=== PATIENT | male | born 1960 | race Caucasian/White ===

== ENCOUNTER 2016-09-24 08:45 | Emergency (ER) | payer OTHER ==
[~2016-09-24] VITALS: Ht 170.2 cm; Wt 80.0 kg
[2016-09-24 09:04] VITALS: Ht 170.2 cm; Wt 80.0 kg
--- NOTE | 2016-09-24 09:29 | ERD ---
ER Documentation Chief Complaint Date/Time DATE: 09/24/16 TIME: 09:29 Chief Complaint BIB RA FOR EVAL OF ETOH. NO APPARENT INJURIES. HPI 56-year-old male undomiciled with no significant previous medical history presents to the ED via ambulance for evaluation of alcohol intoxication. He was at a local car wash and refused to leave the paramedics were called. Patient states he has been drinking, is hungry and just wants a sandwich. He does not want any kind of medical evaluation. Denies depression, hallucinations , suicidal or homicidal ideations. Asymptomatic. Denies chest pain or palpitations. No abdominal pain, nausea vomiting. No shortness of breath or cough. No fevers or chills. ROS All systems reviewed and are negative except as per history of present illness. PMhx/Soc Reviewed in chart. As per HPI. History of Surgery: No Anesthesia Reaction: No Hx Neurological Disorder: No Hx Respiratory Disorders: No Hx Cardiac Disorders: No Hx Psychiatric Problems: No Hx Miscellaneous Medical Probl: No Hx Alcohol Use: Yes Hx Substance Use: No Hx Tobacco Use: Yes FmHx Unknown, not relevant to presenting complaint. Physical Exam Vitals Vital Signs Date Time Temp Pulse Resp B/P Pulse Ox O2 Delivery O2 Flow Rate FiO2 09/24/16 15:54 97.6 70 18 135/65 100 Room Air 09/24/16 11:02 97.9 70 19 134/50 100 Room Air 09/24/16 09:04 97.0 100 19 113/60 100 Physical Exam Const: Alert, no acute distress Head: Atraumatic Eyes: Normal Conjunctiva ENT: Normal External Ears, Nose and Mouth. Neck: Full range of motion. Nontender Resp: Clear to auscultation bilaterally Cardio: Regular rate and rhythm, no murmurs Abd: Soft, non tender, non distended. Normal bowel sounds Skin: No petechiae or rashes Back: No midline or flank tenderness Ext: No cyanosis, or edema Neur: Awake and alert. No focal deficit observed. Psych: Intoxicated. Denies hallucinations or delusions. No suicidal homicidal ideations. Procedures/MDM DOCUMENTS REVIEWED: ED nurse, EMS, no prior records REEXAMINATION/REEVALUATION: Time: 11:00. Consumed several sandwiches. Alert and ambulatory with a steady gait. warehouse worker at the bedside but he refused evaluation. Time: 13:00. Sleeping but easily arousable. Ambulated to the bathroom. Time: 14:10. Patient now agrees to hospital social worker consultation for disposition. MEDICAL DECISION MAKIN-year-old undomiciled male with no significant previous medical history presents to the ED via ambulance for evaluation of alcohol intoxication. Admits to binge alcohol use. Patient denies any medical history, has no physical complaints and does not want lab work. He was observed in the ED for over 5 hours. He is alert, oriented and asymptomatic. No signs of alcohol withdrawal. He is undomiciled and initially refused hospital social worker but subsequently acquiesced and evaluation is pending. Counseled patient regarding diagnostic workup, diagnosis and need for followup. Understands to return to ED if symptoms recur, worsen or any other concerns. Departure Diagnosis: Primary Impression: Alcoholic intoxication Complication of substance-induced condition: uncomplicated Qualified Code: F10.120 - Alcoholic intoxication, uncomplicated Additional Impression: Homelessness Condition: Stable CHRIS CORTES MD September 24, 2016 09:29
[2016-09-24 15:54] VITALS: BP 135/65; PULSE 70; RESP 18; TEMP 97.6
== END 2016-09-24 15:55 | disposition home or self-care (01) ==
LOC: E/R 08:45
DX: F10.120 Alcohol abuse with intoxication, uncomplicated (principal); Z59.0 Homelessness; Z87.891 Personal history of nicotine dependence
CPT/HCPCS: 99283

== ENCOUNTER 2016-10-03 19:17 | Emergency (ER) | payer OTHER ==
[~2016-10-03] VITALS: Ht 177.8 cm; Wt 90.9 kg
[2016-10-03 20:15] VITALS: Ht 177.8 cm; Wt 90.9 kg
--- NOTE | 2016-10-03 20:50 | ERA ---
ER Documentation Chief Complaint Date/Time DATE: 10/03/16 TIME: 20:47 Chief Complaint HPI Patient is a 56-year-old man who presents with 1-2 days of gradual onset constant suicidal ideation with plan to overdose on pills and alcohol. The patient also reports having intermittent, sharp and dull, left precordial chest pain lasting less than 1 minute at time for the last 12 hours. The patient reports drinking alcohol today, taking his friend's Klonopin, "but not an overdose," and taking a "small" of methamphetamine. Patient reports that he has been diagnosed with bipolar disorder and schizoaffective disorder, was recently hospitalized for suicidality, and is intermittently compliant with Lamictal. ROS All systems reviewed and are negative except as per history of present illness. Medications Home Meds Reported Medications Levetiracetam* (Levetiracetam*) 500 Mg Tablet, 500 MG PO BID, TAB 10/03/16 Diazepam* (Diazepam*) 10 Mg Tablet, 30 MG PO BID Y for PRN, TAB 10/03/16 Lisinopril* (Lisinopril*) 20 Mg Tablet, 20 MG PO DAILY, #30 TAB 10/03/16 Allergies Allergies: Coded Allergies: ciprofloxacin (Unverified Allergy, Unknown, 10/03/16) PMhx/Soc Past medical history: Bipolar disorder, schizoaffective disorder Past surgical history: Denies Social history: Drinks alcohol, occasional meth, denies tobacco History of Surgery: No Anesthesia Reaction: No Hx Neurological Disorder: No Hx Respiratory Disorders: No Hx Cardiac Disorders: No Hx Psychiatric Problems: No Hx Miscellaneous Medical Probl: No Hx Alcohol Use: Yes Hx Substance Use: No Hx Tobacco Use: Yes FmHx Family History: No coronary disease, No diabetes Physical Exam Vitals Vital Signs Date Time Temp Pulse Resp B/P Pulse Ox O2 Delivery O2 Flow Rate FiO2 10/03/16 23:53 98.9 67 16 112/65 98 Room Air 10/03/16 20:15 98.2 84 20 108/62 97 Physical Exam Const: Alert, no acute distress Head: Atraumatic Eyes: Normal Conjunctiva, no pallor, no icterus, pupils midrange and reactive ENT: Normal External Ears, Nose and Mouth. Moist mucous membranes Neck: Full range of motion..~ No meningismus. No JVD Resp: Clear to auscultation bilaterally Cardio: Regular rate and rhythm, no murmurs Abd: Soft, non tender, non distended. Normal bowel sounds Skin: No petechiae or rashes Back: No midline or flank tenderness Ext: No cyanosis, or edema Neur: Awake and alert, cranial nerves II through XII intact bilaterally, moves and feels 4 extremities appropriate Psych: Labile affect, rapid speech, grandiosity Result Diagram: 10/03/16192910/03/161929 Results 24 hrs Laboratory Tests Test 10/03/16 19:22 10/03/16 19:30 Urine Color LT. YELLOW Urine Clarity CLEAR Urine pH 5.5 Urine Specific [place] <=1.005 Urine Ketones NEGATIVE Urine Nitrite NEGATIVE Urine Bilirubin NEGATIVE Urine Urobilinogen 0.2 E.U./dL Urine Leukocyte Esterase NEGATIVE Urine Hemoglobin NEGATIVE Urine Glucose NEGATIVE% Urine Total Protein NEGATIVE Urine Opiates Screen NEGATIVE Urine Barbiturates NEGATIVE Urine Amphetamines Screen NEGATIVE Urine Benzodiazepines Screen POSITIVE Urine Cocaine Screen NEGATIVE Urine Cannabinoids NEGATIVE White Blood Count 8.110^3/ul Red Blood Count 4.8910^6/ul Hemoglobin 15.5g/dl Hematocrit 47.5% Mean Corpuscular Volume 97.1fl Mean Corpuscular Hemoglobin 31.7pg Mean Corpuscular Hemoglobin Concent 32.6g/dl Red Cell Distribution Width 13.7% Platelet Count 41790^3/UL Mean Platelet Volume 10.2fl Neutrophils % 63.9% Lymphocytes % 26.2% Monocytes % 7.6% Eosinophils % 0.6% Basophils % 0.5% Nucleated Red Blood Cells % 0.0/100WBC Neutrophils # 5.210^3/ul Lymphocytes # 2.110^3/ul Monocytes # 0.610^3/ul Eosinophils # 0.110^3/ul Basophils # 0.010^3/ul Nucleated Red Blood Cells # 0.010^3/ul Prothrombin Time 12.7Sec Prothrombin Time Ratio 1.0 INR International Normalized Ratio 0.95 Sodium Level 145mmol/L Potassium Level 3.6mmol/L Chloride Level 104mmol/L Carbon Dioxide Level 26mmol/L Anion Gap 19 Blood Urea Nitrogen 20mg/dl Creatinine 0.96mg/dl Glucose Level 94mg/dl Calcium Level 10.1mg/dl Total Bilirubin 0.0mg/dl Direct Bilirubin 0.00mg/dl Indirect Bilirubin 0.0mg/dl Aspartate Amino Transf (AST/SGOT) 44IU/L Alanine Aminotransferase (ALT/SGPT) 46IU/L Alkaline Phosphatase 80IU/L Troponin I < 0.012ng/ml Total Protein 8.5g/dl Albumin 4.7g/dl Globulin 3.80g/dl Albumin/Globulin Ratio 1.23 Salicylates Level < 1.0mg/dl Acetaminophen Level < 10.0ug/ml Ethyl Alcohol Level 189.0mg/dl Procedures/MDM EKG read by me: Time 2057, rate 83 Rhythm: Normal sinus [place]: Normal Intervals: Normal ST-T waves: no ischemic changes Ectopy: No Q-waves: No Impression: No evidence of ischemia or arrhythmia MDM: Patient is a 56-year-old male who presents to the ER with evidence of decompensated bipolar disorder associated with suicidal ideation with plan. The patient is appropriately communicative and is able to express that he did drink alcohol use a small amount of drugs, but that he did not take an overdose of any medication despite plan to overdose on medication. The patient did complain of a very atypical chest pain that is a very short duration and reports that he has had this pain numerous times in the past. His EKG, chest x- ray, and troponin are all negative. I do not believe that he requires further workup for chest pain at this time. There is some reproducible pain on exam and I suspect that this is chest wall pain. The patient was evaluated by tele- psychiatry, who recommends that the patient be put on 5150 hold. The patient was signed out at shift change awaiting PET team evaluation for hold. Departure Diagnosis: Primary Impression: Suicidal ideation Additional Impressions: Bipolar disorder Qualified Code: F31.9 - Bipolar affective disorder, remission status unspecified Atypical chest pain Alcohol intoxication Qualified Code: F10.120 - Alcohol intoxication, uncomplicated Condition: Stable JACQUELIN LEOS MD October 03, 2016 20:49
--- NOTE | 2016-10-03 21:19 | RADRPT ---
PROCEDURE: XR Chest. CLINICAL INDICATION: Shortness of breath. TECHNIQUE: A single portable view of the chest was obtained. COMPARISON: None FINDINGS: The cardiomediastinal silhouette is within normal limits. The lungs and pleural spaces are clear. The soft tissues and osseous structures are unremarkable. IMPRESSION: No acute cardiopulmonary disease. RPTAT: HPNM Physician [place] Date Time Electronically viewed and signed by Estrada Law Physician on 10/03/2016 21:19 /
[2016-10-03 21:23] LABS: ADD SCAN DIFF NO
[2016-10-03 21:24] LABS: BASOPHILS % 0.5 % (0.0-2.0); EOSINOPHILS # 0.1 10^3/ul (0.0-0.5); EOSINOPHILS % 0.6 % (0.0-7.0); HEMATOCRIT 47.5 % (42.0-52.0); HEMOGLOBIN 15.5 g/dl (14.0-18.0); LYMPHOCYTES # 2.1 10^3/ul (0.8-2.9); LYMPHOCYTES % 26.2 % (15.0-51.0); MEAN CORPUSCULAR HEMOGLOBIN 31.7 pg (29.0-33.0); MEAN CORPUSCULAR HGB CONC 32.6 g/dl (32.0-37.0); MEAN CORPUSCULAR VOLUME 97.1 fl (82.0-101.0); MEAN PLATELET VOLUME 10.2 fl (7.4-10.4); MONOCYTE # 0.6 10^3/ul (0.3-0.9); MONOCYTES % 7.6 % (0.0-11.0); NEUTROPHIL # 5.2 10^3/ul (1.6-7.5); NEUTROPHILS % 63.9 % (39.0-77.0); PLATELET COUNT 234 10^3/UL (140-415); RED BLOOD COUNT 4.89 10^6/ul (4.70-6.10); RED CELL DISTRIBUTION WIDTH 13.7 % (11.5-14.5); WHITE BLOOD COUNT 8.1 10^3/ul (4.8-10.8)
[2016-10-03 21:34] LABS: INR 0.95; PROTIME 12.7 Sec (12.2-14.2)
[2016-10-03 21:36] LABS: ALBUMIN 4.7 g/dl (3.3-4.9); CHLORIDE 104 mmol/L (97-110)
[2016-10-03 21:37] LABS: POTASSIUM 3.6 mmol/L (3.5-5.1); SODIUM 145 mmol/L (135-144)
[2016-10-03 21:39] LABS: ALANINE AMINOTRANSFERASE 46 IU/L (13-69); ALBUMIN/GLOBULIN RATIO 1.23; ALKALINE PHOSPHATASE 80 IU/L (42-121); ANION GAP 19 (8-16); ASPARTATE AMINO TRANSFERASE 44 IU/L (15-46); BLOOD UREA NITROGEN 20 mg/dl (7-20); CARBON DIOXIDE 26 mmol/L (21-31); CREATININE 0.96 mg/dl (0.61-1.24); GLUCOSE 94 mg/dl (70-220); TOTAL PROTEIN 8.5 g/dl (6.1-8.1)
[2016-10-03 21:40] LABS: ACETAMINOPHEN < 10.0 ug/ml (10.0-30.0); CALCIUM 10.1 mg/dl (8.4-10.2); SALICYLATE < 1.0 mg/dl (5.0-30.0)
[2016-10-03] MEDS ORDERED: LISI20TA11 PO (21:40)
[2016-10-03] MEDS ORDERED: DIAZ10TA4 PO (21:43)
[2016-10-03] MEDS ORDERED: LEVE500T8 PO (21:43)
[2016-10-03 21:54] LABS: TROPONIN-I < 0.012 ng/ml (0.00-0.12)
[2016-10-03 22:04] LABS: ADD UMIC NO; URINE BILIRUBIN (Dip) NEGATIVE (NEGATIVE); URINE BLOOD (Dip) NEGATIVE (NEGATIVE); URINE COLOR LT. YELLOW (YELLOW); URINE GLUCOSE (Dip) NEGATIVE (NEGATIVE); URINE KETONES (Dip) NEGATIVE (NEGATIVE); URINE LEUKOCYTE ESTERASE (Dip) NEGATIVE (NEGATIVE); URINE NITRITE (Dip) NEGATIVE (NEGATIVE); URINE TOTAL PROTEIN (Dip) NEGATIVE (NEGATIVE); URINE UROBILINOGEN (Dip) 0.2 E.U./dL (0.1-1.0)
[2016-10-03 22:25] LABS: BARBITURATES NEGATIVE (NEGATIVE); BENZODIAZEPINES POSITIVE (NEGATIVE); CANNABINOIDS NEGATIVE (NEGATIVE)
[2016-10-03 22:26] LABS: COCAINE NEGATIVE (NEGATIVE); OPIATES NEGATIVE (NEGATIVE)
[2016-10-03 23:53] VITALS: TEMP 98.9
--- NOTE | 2016-10-04 00:04 | PSY ---
Date/Time of Note Date/Time of Note DATE: 10/03/16 TIME: 23:51 Psychiatric Subjective Eval Consent Pt consented to telemedicine: Yes Subjective Evaluation Patient location: emergency Chief Complaint: SI AT SUBWAY, + ANXIETY & HP WITH DULL CHEST PRESSURE Reason for consult: SI History of present illness patient is a 56 yo male homeless with PPH Of depression and anxiety as well as alcohol abuse who came to the ER due to feeling suicidal , he states that he wants to overdose on pills and alcohol , states that he has been feeling suicidal for years but now has "reached a climax". he is depressed, hopeless and helpless due to feeling alone, mother that he was closed to as well as one sister and he is homeless and unemployed. he denies any current or past manic or psychotic symptoms , no HI. alcohol use rey no drug use. Past psychiatric history multiple past admission Hospitalization: Suicidal Attempt(s) Family History denies Medical history Problems Medical Problems: (1) Alcoholic intoxication Status: Acute (2) Homelessness Status: Acute Allergies: Coded Allergies: ciprofloxacin (Unverified Allergy, Unknown, 10/03/16) Substance Abuse Substance abuse history: Yes (alcohol ) Prior substance abuse treatmen: No Social History Marital status: single Level of education: COLLEGE X 2 YEARS DPA/Conservatorship: No Occupation/Senior Care: unemployed Psychiatric Objective Eval Review of Systems: Review of Systems: Not Applicable Physical Examination: Physical Examination: Applicable Sleep: Insomnia Appetite: Decreased Energy: Decreased Interest: Decreased Mental Status Examination: Appearance: Disheveled Eye Contact: Good Behavior: Cooperative Speech: Clear AFFECT: Appropriate, Depressed Mood: Depressed Though Process: Linear Thought Content: Normal Suicidal: Yes Homicidal: No On 72 hour hold: No Cognition: Alert Insight: Impared Judgement: Impared Attention Span: Intact Laboratory Results Laboratory Tests Test 10/03/16 19:22 10/03/16 19:30 Urine Color LT. YELLOW Urine Clarity CLEAR Urine pH 5.5 Urine Specific [place] <=1.005 Urine Ketones NEGATIVE Urine Nitrite NEGATIVE Urine Bilirubin NEGATIVE Urine Urobilinogen 0.2 E.U./dL Urine Leukocyte Esterase NEGATIVE Urine Hemoglobin NEGATIVE Urine Glucose NEGATIVE% Urine Total Protein NEGATIVE Urine Opiates Screen NEGATIVE Urine Barbiturates NEGATIVE Urine Amphetamines Screen NEGATIVE Urine Benzodiazepines Screen POSITIVE Urine Cocaine Screen NEGATIVE Urine Cannabinoids NEGATIVE White Blood Count 8.110^3/ul Red Blood Count 4.8910^6/ul Hemoglobin 15.5g/dl Hematocrit 47.5% Mean Corpuscular Volume 97.1fl Mean Corpuscular Hemoglobin 31.7pg Mean Corpuscular Hemoglobin Concent 32.6g/dl Red Cell Distribution Width 13.7% Platelet Count 68074^3/UL Mean Platelet Volume 10.2fl Neutrophils % 63.9% Lymphocytes % 26.2% Monocytes % 7.6% Eosinophils % 0.6% Basophils % 0.5% Nucleated Red Blood Cells % 0.0/100WBC Neutrophils # 5.210^3/ul Lymphocytes # 2.110^3/ul Monocytes # 0.610^3/ul Eosinophils # 0.110^3/ul Basophils # 0.010^3/ul Nucleated Red Blood Cells # 0.010^3/ul Prothrombin Time 12.7Sec Prothrombin Time Ratio 1.0 INR International Normalized Ratio 0.95 Sodium Level 145mmol/L Potassium Level 3.6mmol/L Chloride Level 104mmol/L Carbon Dioxide Level 26mmol/L Anion Gap 19 Blood Urea Nitrogen 20mg/dl Creatinine 0.96mg/dl Glucose Level 94mg/dl Calcium Level 10.1mg/dl Total Bilirubin 0.0mg/dl Direct Bilirubin 0.00mg/dl Indirect Bilirubin 0.0mg/dl Aspartate Amino Transf (AST/SGOT) 44IU/L Alanine Aminotransferase (ALT/SGPT) 46IU/L Alkaline Phosphatase 80IU/L Troponin I < 0.012ng/ml Total Protein 8.5g/dl Albumin 4.7g/dl Globulin 3.80g/dl Albumin/Globulin Ratio 1.23 Salicylates Level < 1.0mg/dl Acetaminophen Level < 10.0ug/ml Ethyl Alcohol Level 189.0mg/dl Assessment and Plan Assessment/Diagnosis [facility] [place] I: mood do nos anxiety do nos amphetamine abuse [facility] II: deferred deferred [facility] III: as per record [facility] IV: homeless [facility] V: gaf 25 Recommendation/Plan Medication Management ativan 1 mg po tid remeron 15 mg po qhs Follow-up/Disposition Patient needs unvoluntary admission due to danger to self In my opinion, patient currently MEETS criterion for inpatient care and CANNOT be safely treated at a lower level of care today as evidenced by the following risk factors: Current Suicidal Ideation. Previous suicide attempt or severe self-destructive behavior. Intense feelings of hopelessness and/or lack of future orientation. Non-Compliance with Outpatient Treatment. Substance ABUSE in conjunction with another psychiatric disorder. Significant recent DETERIORATION in function, behavior and thought processes 2110 Recommendation: MARCIA Gongora MD October 04, 2016 00:02
[2016-10-04 02:00] VITALS: BP 111/68; PULSE 73; RESP 17
== END 2016-10-04 03:53 | disposition short-term general hospital (02) ==
LOC: E/R 19:17
DX: R45.851 Suicidal ideations (principal); F31.9 Bipolar disorder, unspecified; R07.89 Other chest pain; F10.120 Alcohol abuse with intoxication, uncomplicated; Z87.891 Personal history of nicotine dependence
CPT/HCPCS: 71010; 80053; 80306; 80307; 81003; 84484; 85025; 85610; 93005

== ENCOUNTER 2017-09-28 18:49 | Emergency (ER) | END 2017-09-29 06:26 ==